=== PATIENT | female | born 1980 | race African-American/Black ===

== ENCOUNTER 2020-12-26 11:52 | Emergency (ER) | payer OTHER, SELFPAY ==
--- NOTE | ~2020-12-26 | CT_ITS ---
EXAMINATION: CTA chest PE protocol DATE: 12/26/2020 15:51 INDICATION: Shortness of breath. Cough. Elevated d-dimer. TECHNIQUE: Computed tomography (CT) pulmonary angiogram of the chest was performed with 100 mL Omnipa que-350 intravenous contrast. Additional 3D reconstructions utilizing coronal maximum intensity proje ction (MIP) were performed. Automated exposure control and iterative reconstruction technique were em ployed. The dose-length product was 295.50 mGy-cm. COMPARISON: None FINDINGS: Could contrast opacification of the pulmonary arteries. There is mild streak artifact from dense cont rast in the superior vena cava and right atrium. No significant motion artifact yielding diagnostic q uality study which demonstrates no pulmonary embolism. Small region of airspace consolidation without appreciable volume loss at the anterobasilar segment of the right lower lobe concerning for pneumoni a. Small calcified pulmonary nodules in the lingula and right lower lobe consistent with old granulom atous disease. No pulmonary edema or pleural effusion. Heart size is normal. No pericardial effusion. Thoracic aorta is normal in caliber with no dissection. Mild likely reactive right hilar lymphadenop athy. Visualized upper abdomen and bones are unremarkable. IMPRESSION: 1. No pulmonary embolus and . 2. Small subsegmental region of consolidation in the anterobasilar right lower lobe concerning for pn eumonia. 3. Mild likely reactive right hilar lymphadenopathy. Reviewed, dictated and finalized at location A. IMPRESSION: 1. No pulmonary embolus and . 2. Small subsegmental region of consolidation in the anterobasilar right lower lobe concerning for pneumonia. 3. Mild likely reactive right hilar lymphadenopathy.
--- NOTE | ~2020-12-26 | XR_ITS ---
XR chest 1V portable DATE: 12/26/2020 12:37 INDICATION: Cough TECHNIQUE: Portable upright AP chest on 12/26/2020 at 1230 hours COMPARISON: 10/12/2016 two-view chest FINDINGS: Normal heart size. No hilar or mediastinal enlargement. No pulmonary infiltrate or consolid ation, pleural effusion or pulmonary vascular congestion or pneumothorax. IMPRESSION: No active cardiopulmonary disease Reviewed, dictated and finalized at location A.
[2020-12-26 12:13] VITALS: BP 115/78; PULSE 90; RESP 18; TEMP 36.7; O2SAT 98
[2020-12-26 12:18] VITALS: O2SAT 98
--- NOTE | 2020-12-26 12:38 | ECG_ITS ---
Measurements Intervals [place] Rate: 98 P: 50 [place]: 135 QRS: 12 QRSD: 86 T: 5 QT: 323 QTc: 413 Interpretive Statements SINUS RHYTHM INCOMPLETE RIGHT BUNDLE BRANCH BLOCK LOW QRS VOLTAGE IN PRECORDIAL LEADS BORDERLINE T WAVE ABNORMALITY- ANT/INF LEADS BORDERLINE ECG Electronically Signed On 12-26-2020 13:02:42 CDT by Cody Christine D.O.
--- NOTE | 2020-12-26 13:01 | ED.GENADULT ---
HPI - General Adult General Chief complaint: Shortness of Breath/Dyspnea Stated complaint: Cough,SOB,Body Aches Time Seen by Provider: 12/26/20 12:33 Source: RN notes reviewed History of Present Illness HPI narrative: Patient presents to emergency department from home for cough and shortness of breath. Patient states that symptoms initially began approximately 2 weeks ago. She states at that time her 2 children had upper respiratory symptoms and one of them tested positive for COVID-19 but the other tested negative. She had a negative Covid 19 test as a rapid test on December 19. Patient states that she has had a cough this been nonproductive intermittent low-grade fevers body aches and shortness of breath for the past 2 weeks she states that she is not had the COVID-19 vaccine. Patient states she also lost her sense of taste and smell Related Data Allergies Allergy/AdvReac Type Severity Reaction Status Date / Time peanut oil Allergy Severe HIVES,DIFFICULTY Verified 01/13/17 07:50 BREATHING Honey Bee Allergy Intermediate HIVES Uncoded 01/13/17 07:50 Review of Systems Review of Systems: Narrative: Gen.: Reports objective fevers and body aches Eyes: Denies eye pain or visual change ENT: Reports rhinorrhea Respiratory: See HPI CV: Denies chest pain or palpitations GI: Denies abdominal pain nausea, emesis or diarrhea Musculoskeletal: Denies back pain or muscle pain Neuro: Denies numbness, tingling, weakness or focal weakness Skin: Denies rash Except as documented, all other systems reviewed and negative PMFSH Past Medical History Medical History (Updated 12/26/20 @ 16:43 by Faraz Zheng DO) Patient denies significant medical history Social History Social History (Updated 12/26/20 @ 13:05 by Faraz Zheng DO) Smoking status: Never smoker Exam Narrative: Exam Narrative: APPEARANCE: No acute distress, nontoxic, resting in bed EYES: EOMI HEENT: Normocephalic, atraumatic, OMM RESPIRATORY: No respiratory distress Clear to auscultation bilaterally with no rhonchi wheezing or rales. CARDIOVASCULAR: Regular rate and rhythm without murmurs rubs or gallops. ABDOMINAL: Soft, nontender, nondistended, no rebound or guarding MUSCULOSKELETAl: Moves all extremities. No clubbing, cyanosis or edema. NEURO: Awake and alert. Following commands, speech normal, no focal deficits SKIN:: Warm, dry. No rashes lesions or abrasions PSYCHIATRIC: Normal affect/mood, Course Course Emergency Course: Discussed with patient results of workup and diagnosis. Discussed need for follow-up with primary care, proper use of medication, and reasons to return to the emergency department. Patient understands and agrees to current treatment plan Vital Signs Vital signs: Vital Signs Temperature 98.1 F 12/26/20 12:13 Pulse Rate 90 12/26/20 12:13 Respiratory Rate 18 12/26/20 12:13 Blood Pressure 115/78 12/26/20 12:13 Pulse Oximetry 98 12/26/20 12:13 Temperature 98.1 F 12/26/20 12:13 Pulse Rate 90 12/26/20 12:13 Respiratory Rate 18 12/26/20 12:13 Blood Pressure 115/78 12/26/20 12:13 Pulse Oximetry 98 12/26/20 12:18 Medical Decision Making Vital Signs Vital Signs: Vital Signs Temperature 98.1 F 12/26/20 12:13 Pulse Rate 90 12/26/20 12:13 Respiratory Rate 18 12/26/20 12:13 Blood Pressure 115/78 12/26/20 12:13 Pulse Oximetry 98 12/26/20 12:13 Temperature 98.1 F 12/26/20 12:13 Pulse Rate 90 12/26/20 12:13 Respiratory Rate 18 12/26/20 12:13 Blood Pressure 115/78 12/26/20 12:13 Pulse Oximetry 98 12/26/20 12:18 Lab Data Result diagrams: 12/26/20 13:11 12/26/20 13:11 Labs: Lab Results 12/26/20 12/26/20 12/26/20 Range/Units 13:11 13:11 13:11 WBC 6.9 (4.5-10.0) K/mm3 RBC 3.69 L (4.2-5.4) M/mm3 Hgb 10.9 L (12.0-15.0) g/dL Hct 34.5 L (37.0-47.0) % MCV 93.5 (80-100) fl MCH 29.5 (26-34) pg MCHC 31.6 L
[2020-12-26 13:29] LABS: Basophils Percent Auto 0.1 % (0.2-1.2); Eosinophils Percent Auto 0.6 % (0-4.4); Hematocrit 34.5 % (37.0-47.0); Hemoglobin 10.9 g/dL (12.0-15.0); Immature Granulocyte Absolute 0.03 K/mm3 (0.00-0.031); Immature Granulocyte Percent A 0.4 % (0-0.5); Lymphocytes Absolute Auto 1.53 K/mm3 (0.9-3.2); Lymphocytes Percent Auto 22.3 % (18.3-44.2); Mean Corpuscular HGB Conc 31.6 g/dl (32-36); Mean Corpuscular Hemoglobin 29.5 pg (26-34); Mean Corpuscular Volume 93.5 fl (80-100); Mean Platelet Volume 10.2 fl (7.4-10.4); Monocytes Absolute Auto 0.3 K/mm3 (0.1-0.6); Monocytes Percent Auto 4.2 % (2.6-8.5); Neutrophils Percent Auto 72.4 % (45.5-73.1); Platelet Count Result 283 k/mm3 (150-375); Red Blood Count 3.69 M/mm3 (4.2-5.4); Red Cell Distribution Width 13.2 % (11.5-14.5); White Blood Count 6.9 K/mm3 (4.5-10.0)
--- NOTE | 2020-12-26 13:32 | PC.NURSE ---
1000mg of tylenol PO administered. Verbal order received from Dr. Zheng at 1330.
[2020-12-26] MEDS: ACETAMINOPHEN 500 MG TABLET 1000 MG (13:35)
[2020-12-26 13:39] LABS: Alanine Aminotransferase 28 U/L (4-35); Albumin Level 4.4 g/dL (3.5-5.1); Alkaline Phosphatase 52 U/L (38-126); Anion Gap 11 mmol/L (8-16); Aspartate Amino Transferase 32 U/L (14-36); Bilirubin,Total 0.5 mg/dL (0.2-1.3); Blood Urea Nitrogen 7 mg/dL (7-17); Carbon Dioxide 23 mmol/L (22-30); Chloride 103 mmol/L (98-107); Estimated CRCL calculation 91 ml/min; Estimated Glomerular Filt Rate > 60; Glucose 95 mg/dL (65-105); Potassium 3.7 mmol/L (3.4-5.0); Sodium 137 mmol/L (137-145)
[2020-12-26] MEDS: ALBUTEROL SULFATE (*SP) AEROSOL 1 PUFF 2 PUFF INHALATION (14:49)
[2020-12-26] MEDS: AZITHROMYCIN 250 MG TABLET 500 MG PO (16:29)
[2020-12-26 16:53] VITALS: BP 103/73; PULSE 80; RESP 16; O2SAT 98
[2020-12-27 19:11] LABS: SARS-CoV-2 RNA PCR Positive
== END 2020-12-26 16:54 | disposition home or self-care (01) ==
PROVIDERS: Emergency Provider Emergency Medicine; PCP Internal Medicine Gastroenterology
DX: U07.1 COVID-19 (principal); J12.82 Pneumonia due to coronavirus disease 2019
CPT/HCPCS: 36415; 71045; 71275; 80053; 85025; 85380; 87804; 93005; 99284; A9270; C9803; Q9967; U0003; U0005

== ENCOUNTER 2023-12-09 08:38 | Outpatient (CLI) | payer OTHER, SELFPAY ==
--- NOTE | ~2023-12-09 | MM_ITS ---
EXAMINATION: MM screening ricardo BI w esther HISTORY: Screening mammogram TECHNIQUE: Craniocaudal and mediolateral oblique 3-D tomosynthesis images were obtained and synthetic 2-D images were generated. CAD analysis was submitted and interpreted. COMPARISON: No prior mammogram is available for comparison at this institution. BREAST PARENCHYMAL COMPOSITION:Not Dense. There are scattered areas of fibroglandular density. FINDINGS: No suspicious mass, calcification, or architectural distortion are identified in either laurita ast to suggest malignancy. There has been no suspicious interval change. IMPRESSION: No mammographic evidence of malignancy. Recommend routine screening mammography in one year. BI-RADS Category 1: Negative Reviewed, dictated and finalized at location .
== END 2023-12-09 08:39 | disposition home or self-care (01) ==
PROVIDERS: PCP Internal Medicine Gastroenterology; Visit Provider Nurse Practitioner Obstetrics & Gynecology
DX: Z12.31 Encounter for screening mammogram for malignant neoplasm of breast (principal)
CPT/HCPCS: 77063; 77067